=== PATIENT | female | born 1985 | race Two or more races ===

== ENCOUNTER 2018-02-10 00:01 | Emergency (ER) | payer MEDICAID ==
[~2018-02-10] VITALS: Ht 154.9 cm; Wt 56.0 kg
[~2018-02-10 00:01] MED LIST: NO HOME MEDS
[2018-02-10 01:32] LABS: PARTIAL THROMBOPLASTIN TIME 28 SECONDS (22-32); PROTHROMBIN TIME 10.2 SECONDS (9.0-12.0)
[2018-02-10 01:33] LABS: URINE AMPHETAMINE SCREEN POSITIVE (Neg); URINE BARBITUATE SCREEN NEGATIVE (Neg); URINE BENZODIAZEPINES SCREEN NEGATIVE (Neg); URINE CANNABINOID SCREEN POSITIVE (Neg); URINE COCAINE SCREEN NEGATIVE (Neg); URINE METHADONE SCREEN NEGATIVE (Neg); URINE OPIATE SCREEN POSITIVE (Neg); URINE PHENCYCLIDINE SCREEN NEGATIVE (Neg)
[2018-02-10 01:36] LABS: ALANINE AMINOTRANSFERASE 64 U/L (12-78); ALBUMIN 3.6 G/DL (3.4-5.0); ALBUMIN/GLOBULIN RATIO 0.7 (1.1-1.5); ALKALINE PHOSPHATASE 86 IU/L (46-116); ANION GAP 7 (8-16); ASPARTATE AMINO TRANSFERASE 36 U/L (10-37); BILIRUBIN,TOTAL 0.4 MG/DL (0.1-1.0); BLOOD UREA NITROGEN 8 MG/DL (7-18); BUN/CREATININE RATIO 10.3 (6.6-38.0); CALCIUM 9.5 MG/DL (8.5-10.1); CHLORIDE 101 MMOL/L (99-107); CREATININE 0.78 MG/DL (0.40-0.90); GLUCOSE 79 MG/DL (70-104); POTASSIUM 3.8 MMOL/L (3.5-5.1); SODIUM 139 MMOL/L (135-145); TOTAL CARBON DIOXIDE 30.7 MMOL/L (24-32); TOTAL PROTEIN 8.7 G/DL (6.4-8.2); eGFR 87 ML/MIN
[2018-02-10 02:00] LABS: BASOPHILS % (AUTO) 0.5 % (0-1); EOSINOPHILS # (AUTO) 0.2 X10'3 (0-0.9); EOSINOPHILS % (AUTO) 2.8 % (0-6); HEMATOCRIT 36.4 % (35.0-45.0); LYMPHOCYTES # (AUTO) 2.9 X10'3 (1.1-4.8); LYMPHOCYTES % (AUTO) 35.2 % (21-51); MEAN CORPUSCULAR HEMOGLOBIN 28.9 PG (27.0-31.0); MEAN CORPUSCULAR VOLUME 87.8 FL (78-98); MONOCYTES # (AUTO) 0.5 X10'3 (0-0.9); MONOCYTES % (AUTO) 6.5 % (2-12); NEUTROPHILS # (AUTO) 4.5 X10'3 (1.8-7.7); PLATELET COUNT 346 X10'3 (140-440); RED BLOOD COUNT 4.15 X10'6 (4.20-5.60); RED CELL DISTRIBUTION WIDTH 14.2 % (11.5-14.5); WHITE BLOOD COUNT 8.1 X10'3 (4.5-11.0)
[2018-02-10 02:46] VITALS: BP 120/79
== END 2018-02-10 02:47 | disposition home or self-care (01) ==
LOC: ER 00:02
DX: R53.1 Weakness (principal); F19.10 Other psychoactive substance abuse, uncomplicated; R51 Headache; M25.511 Pain in right shoulder; F11.10 Opioid abuse, uncomplicated; Z59.0 Homelessness
CPT/HCPCS: 36415; 80053; 80305; 83605; 85025; 85610; 85730; 87040; 99284

== ENCOUNTER 2019-09-29 00:10 | Inpatient (IN) | payer MEDICAID ==
[~2019-09-29] VITALS: Ht 180.3 cm; Wt 52.0 kg
[2019-09-29 00:50] LABS: BASOPHILS # (AUTO) 0.1 X10'3 (0-0.2); BASOPHILS % (AUTO) 0.4 % (0-1); EOSINOPHILS % (AUTO) 0.2 % (0-6); HEMATOCRIT 33.6 % (35.0-45.0); LYMPHOCYTES # (AUTO) 1.3 X10'3 (1.1-4.8); MONOCYTES # (AUTO) 1.7 X10'3 (0-0.9)
[2019-09-29] MEDS ORDERED: acetaminophen 325mg tablet PO ONE (00:50)
[2019-09-29] MEDS ORDERED: piperacillin/tazo 3.375gm/50ml 50 ML IV ONE (00:50)
[2019-09-29] MEDS ORDERED: vancomycin/NS 1 GM ADD-VANTAGE 250 ML IV ONE (00:50)
[2019-09-29] MEDS ORDERED: normal saline 1000ML IV soln IV ONE (00:50)
[2019-09-29 00:52] LABS: HEMOGLOBIN 11.4 g/dl (12.0-16.0); MEAN CORPUSCULAR HGB CONC 33.9 g/dL (33.0-36.5); MEAN CORPUSCULAR VOLUME 85.6 FL (78-98); MEAN PLATELET VOLUME 6.5 FL (7.4-10.4); MONOCYTES % (AUTO) 9.2 % (2-12); NEUTROPHILS # (AUTO) 15.4 X10'3 (1.8-7.7); NEUTROPHILS % (AUTO) 83.2 % (42-75); PLATELET COUNT 371 X10'3 (140-440); RED BLOOD COUNT 3.93 X10'6 (4.20-5.60); RED CELL DISTRIBUTION WIDTH 14.6 % (11.5-14.5); WHITE BLOOD COUNT 18.5 X10'3 (4.5-11.0)
[2019-09-29 01:12] LABS: PARTIAL THROMBOPLASTIN TIME 29 SECONDS (22-32)
[2019-09-29 01:19] LABS: ALANINE AMINOTRANSFERASE 131 U/L (12-78); ALBUMIN 3.1 G/DL (3.4-5.0); ALBUMIN/GLOBULIN RATIO 0.6 (1.1-1.5); ALKALINE PHOSPHATASE 90 IU/L (46-116); ANION GAP 8 (8-16); ASPARTATE AMINO TRANSFERASE 70 U/L (10-37); BILIRUBIN,TOTAL 0.6 MG/DL (0.1-1.0); BLOOD UREA NITROGEN 14 MG/DL (7-18); BUN/CREATININE RATIO 15.6 (6.6-38.0); CALCIUM 8.7 MG/DL (8.5-10.1); CHLORIDE 99 MMOL/L (99-107); GLUCOSE 94 MG/DL (70-104); POTASSIUM 4.2 MMOL/L (3.5-5.1); SODIUM 134 MMOL/L (135-145); TOTAL CARBON DIOXIDE 27.3 MMOL/L (24-32); eGFR 73 ML/MIN
[2019-09-29 01:47] LABS: URINE HCG NEGATIVE (NEG)
[2019-09-29 02:01] LABS: CLARITY,URINE CLOUDY (Clear); COLOR,URINE YELLOW (Yellow); GLUCOSE, URINE NEGATIVE (Neg); KETONES,URINE NEGATIVE (Neg); LEUKOCYTE ESTERASE ,URINE LARGE (Neg); NITRITES, URINE NEGATIVE (Neg); OCCULT BLOOD,URINE TRACE-LYSED (Neg); PH,URINE 8.5 (4.8-8.0); PROTEIN,URINE TRACE mg/dl (Neg); UA COLLECTION TYPE CLN CATCH MIDSTREAM; UROBILINOGEN,URINE 0.2 E.U/dL (0.2-1.0)
[2019-09-29 02:24] LABS: BACTERIA,URINE 1+ /HPF (Neg); MUCUS STRANDS NONE SEEN /LPF (Neg); RBC,URINE 0-2 /HPF (0-2); SQUAMOUS EPITHELIAL CELL,UR FEW /LPF (FEW); WBC,URINE 50-100 /HPF (0-4)
[2019-09-29] MEDS ORDERED: normal saline 1000ML IV soln IVB ONE (02:55)
[2019-09-29] MEDS ORDERED: morphine 2 MG/ML inj. syringe IV PRN (04:15)
[2019-09-29] MEDS ORDERED: ondansetron/PF 4mg/2ml inj IV PRN (04:15)
[2019-09-29] MEDS ORDERED: magnesium hydroxide 30ml (MOM) UD suspension PO PRN (04:15)
[2019-09-29] MEDS ORDERED: mag hydrox/Alum hydrox/simeth 30ml oral suspension PO PRN (04:15)
[2019-09-29] MEDS ORDERED: HYDROcodone/acetaminophen 5mg/325mg tablet PO PRN (04:15)
--- NOTE | 2019-09-29 04:55 | NUR ---
Received report from MUNIRA Roche. Awaiting patient arrival to the floor.
[2019-09-29 05:10] VITALS: BP 116/75
[2019-09-29] MEDS: normal saline 1000ml 1,000 ML IV SCH ×3 (05:38→16:51)
--- NOTE | 2019-09-29 06:32 | NUR ---
Problems reprioritized. Patient report given, questions answered & plan of care reviewed with Yissel LOMBARDO.
--- NOTE | 2019-09-29 06:34 | NUR ---
Patient in room [facility]. I have received report from MUNIRA Downs and had the opportunity to ask questions and assume patient care.
--- NOTE | 2019-09-29 06:38 | NUR ---
I have reviewed and agree with all interventions, assessments performed and documented by MUNIRA Damian.
[2019-09-29 07:00] VITALS: BP 102/64
[2019-09-29] MEDS ORDERED: CefTRIAXone 2gm/D5W 50ml 50 ML IV SCH (08:00)
[2019-09-29] MEDS: lactobacillus rhamnosus 10,000 MMU CELLS/CAPSULE PO SCH ×2 (08:47→20:21)
[2019-09-29] MEDS: heparin, porcine 5000 units/ml vial SQ SCH ×2 (08:49→20:21)
[2019-09-29] MEDS ORDERED: pneumococcal 23-VAL P-sac vacc 25 mcg/0.5ml vial IMVAC ONE (09:10)
[2019-09-29] MEDS ORDERED: morphine 2 MG/ML inj. syringe IV ONE (11:50)
--- NOTE | 2019-09-29 13:24 | NUR ---
Patient is complaining of severe 10/10 pain. Patient was given 2 mg of morphine x1 hour ago that she states is not touching her pain. Dr. Hassan notified. Will await orders and monitor patient.
[2019-09-29] MEDS ORDERED: HYDROmorphone 1 mg/ml syringe IV ONE ×2 (13:25→16:40)
[2019-09-29] MEDS: acetaminophen 325mg tablet PO PRN ×2 (13:39→23:20)
[2019-09-29] MEDS ORDERED: traMADol 50MG tablet PO PRN (16:40)
--- NOTE | 2019-09-29 16:41 | NUR ---
Patient complaining severe pain again. MD notified. Received an order for Ultram 50mg PRN and a one time order of Dilaudid 1 mg. Will give and reassess patient pain.
--- NOTE | 2019-09-29 18:43 | NUR ---
Problems reprioritized. Patient report given, questions answered & plan of care reviewed with MUNIRA Palacios.
[2019-09-29 18:50] VITALS: BP 94/58
[2019-09-29] MEDS: HYDROmorphone 1 mg/ml syringe IV PRN (21:34)
[2019-09-30] VITALS: BP 101/60
[2019-09-30] MEDS: HYDROmorphone 1 mg/ml syringe IV PRN (01:33)
[2019-09-30] MEDS: normal saline 1000ml 1,000 ML IV SCH (01:49)
[2019-09-30] MEDS ORDERED: vancomycin/NS 1 GM ADD-VANTAGE 250 ML IV SCH (02:00)
--- NOTE | 2019-09-30 05:30 | NUR ---
PT FOUND AMBULATING IN HALLS WITHOUT HER IV FLUIDS & POLE. SHE HAD DISCONNECTED HERSELF AND TOSSED THE TUBING ON THE FLOOR, TOOK OFF HER TELE AND WAS WALKING THE FLOOR. INSTRUCTED PATIENT THAT SHE CANNOT DISCONNECT HERSELF.
--- NOTE | 2019-09-30 06:38 | NUR ---
Problems reprioritized. Patient report given, questions answered & plan of care reviewed with BIMAL. Addendum: 09/30/19 at 0639 by Dennis Colindres RN Amended: Links added.
--- NOTE | 2019-09-30 06:52 | NUR ---
Patient in room [facility]. I have received report from RASHID LOMBARDO and had the opportunity to ask questions and assume patient care.
[2019-09-30 07:00] VITALS: BP 94/60
--- NOTE | 2019-09-30 07:29 | NUR ---
PAGER ID: [phone] MESSAGE: [phone] Barbara Lea. patient left the floor and has not returned, has an intact PIV. [employer] notified by security, Dariusz Sup amilcar. Jhonny [phone]
--- NOTE | 2019-09-30 07:30 | NUR ---
Was never able to access patient this morning before elopement.
[2019-09-30] MEDS ORDERED: pneumococcal 23-VAL P-sac vacc 25 mcg/0.5ml vial IMVAC ONE (10:00)
[2019-10-02] MEDS ORDERED: VANCOMYCIN LEVEL IV ONE (01:30)
== END 2019-09-30 07:17 | disposition left against medical advice (07) | DRG 720 ==
LOC: ER 00:11 → ED HOLD 04:30 → SUR 3N 05:13
PROVIDERS: ADMIT Family Medicine; ATTEND Internal Medicine
DX: A41.9 Sepsis, unspecified organism (principal); N12 Tubulo-interstitial nephritis, not specified as acute or chronic; R94.5 Abnormal results of liver function studies; F11.23 Opioid dependence with withdrawal; F17.210 Nicotine dependence, cigarettes, uncomplicated; Z53.29 Procedure and treatment not carried out because of patient's decision for other reasons; G89.4 Chronic pain syndrome; Z59.0 Homelessness
CPT/HCPCS: 36415; 71045; 76775; 80048; 80053; 81001; 81025; 83605; 83880; 84145; 84484; 85025; 85610; 85730; 87040; 87077; 87081; 87088; 87186; 87502; 87503; 93005; 93306; 96365; 96366; 96368; 99285; G0378; J0696; J1170; J1644; J2270; J2543; J3370; J7030

== ENCOUNTER 2023-06-29 23:32 | Emergency (ER) | payer MEDICAID ==
[~2023-06-29] VITALS: Ht 165.1 cm; Wt 58.4 kg
[2023-06-29 23:39] VITALS: BP 115/76; PULSE 85; RESP 18; TEMP 97.1; O2SAT 98
[2023-06-30] MEDS ORDERED: HYDROmorphone inj. 0.5 MG/0.5 ML DISP.SYRIN IM ONE (00:10)
[2023-06-30] MEDS ORDERED: normal saline 1000ml 1,000 ML IV ONE (00:25)
[2023-06-30] MEDS ORDERED: HYDROmorphone inj. 0.5 MG/0.5 ML DISP.SYRIN IV ONE (00:40)
== END 2023-06-30 01:51 | disposition home or self-care (01) ==
LOC: ER 23:32
DX: K43.6 Other and unspecified ventral hernia with obstruction, without gangrene (principal); F11.90 Opioid use, unspecified, uncomplicated; Z59.00 Homelessness unspecified; Z79.899 Other long term (current) drug therapy
CPT/HCPCS: 96374; 99284; J1170; J7030